=== PATIENT | male | born 1990 | race African-American/Black ===

== ENCOUNTER 2023-12-08 21:26 | Emergency (ER) | payer MEDICAID ==
[~2023-12-08] VITALS: Ht 185.4 cm; Wt 67.5 kg
[2023-12-08 23:39] VITALS: O2SAT 99
[2023-12-09] MEDS ORDERED: NAPR500T7 MT (02:09)
[2023-12-09] MEDS: IBUPROFEN 600MG TABLET PO ONE (02:15)
[2023-12-09 02:34] VITALS: BP 132/79; PULSE 84; RESP 18
[2023-12-09 02:35] VITALS: TEMP 97.5
== END 2023-12-09 03:44 | disposition home or self-care (01) ==
LOC: ER 21:26
DX: S89.91XA Unspecified injury of right lower leg, initial encounter (principal); W18.39XA Other fall on same level, initial encounter; Y93.89 Activity, other specified; Y92.89 Other specified places as the place of occurrence of the external cause; Y99.8 Other external cause status
CPT/HCPCS: 73560; 99283